=== PATIENT | female | born 1950 | race Caucasian/White ===

== ENCOUNTER → 2021-05-04 | Outpatient (CLI) | payer MEDICARE ==
[~2021-05-04] MED LIST: CYAN50004 PO; CYCL10TA2 PO; LEVO88TA56 PO; MILK140C PO; NAPR220T70 PO; RED600CA2 PO
[2021-05-04 11:13] LABS: BASO # 0.1 x10^3/uL (0.0-0.2); BASO % 1 % (0-3); EOS # 0.4 x10^3/uL (0.0-0.7); EOS % 8 % (0-3); HEMATOCRIT 37.7 % (36.0-47.0); HEMOGLOBIN 12.7 g/dL (12.0-15.5); LYMPH # 1.4 x10^3/uL (1.0-4.8); LYMPH % 24 % (24-48); MEAN CORPUSCULAR HEMOGLOBIN 31 pg (25-35); MEAN CORPUSCULAR HGB CONC 34 g/dL (31-37); MEAN CORPUSCULAR VOLUME 92 fL (79-100); MONO # 0.4 x10^3/uL (0.0-1.1); MONO % 6 % (0-9); NEUT # 3.5 x10^3/uL (1.8-7.7); NEUT % 61 % (31-73); PLATELET COUNT 231 x10^3/uL (140-400); RED BLOOD COUNT 4.12 x10^6/uL (3.50-5.40); RED CELL DISTRIBUTION WIDTH 15.5 % (11.5-14.5); WHITE BLOOD COUNT 5.8 x10^3/uL (4.0-11.0)
[2021-05-04 11:28] LABS: ALBUMIN 3.7 g/dL (3.4-5.0); ALBUMIN/GLOBULIN RATIO 1.1 (1.0-1.7); CALCIUM 9.7 mg/dL (8.5-10.1); CREATININE 0.7 mg/dL (0.6-1.0); GFR 82.5; POTASSIUM 3.8 mmol/L (3.5-5.1); TOTAL BILIRUBIN 0.4 mg/dL (0.2-1.0)
== END ==
LOC: SURGPAT 10:24
PROVIDERS: ATTEND Neurological Surgery
DX: Z01.812 Encounter for preprocedural laboratory examination (principal); Z20.822 Contact with and (suspected) exposure to COVID-19; M48.02 Spinal stenosis, cervical region; Z98.1 Arthrodesis status
CPT/HCPCS: 80053; 85025; 87641; U0003; U0005

== ENCOUNTER 2021-05-07 07:08 | Inpatient (IN) | payer MEDICARE ==
[2021-05-04 10:56] VITALS: BP 140/65
--- NOTE | 2021-05-06 12:56 | HP ---
ADMIT DATE: 05/07/2021 PREOP HISTORY AND PHYSICAL HISTORY OF PRESENT ILLNESS: The patient is a pleasant 70-year-old who is having difficulty with neck and shoulder pain, left greater than right. She also notices numb sensations in both of her hands. She says with standing and walking, her legs feel weak and in fact she has fallen twice. She says she drops things. The problem began about a year and a half ago, it has been slowly worsening, especially in the last 6 months. Her neck and shoulder pain can reach 8/10. She has difficulty sleeping. Reaching up above her head, it is associated with significant pain in her arms. Sitting or changing positions helps her. She has been taking Aleve and Flexeril. She has had previous cervical and lumbar surgery. She had an anterior cervical fusion at C5-C6 and C6-C7 and did very well from that. CURRENT MEDICATIONS: Aspirin, Flexeril, levothyroxine, milk thistle, red yeast rice. PAST MEDICAL HISTORY: Arthritis, COPD, thyroid disease. PAST SURGICAL HISTORY: Cervical fusion in 2006, lumbar surgery in 2007. FAMILY HISTORY: Cancer, heart disease, hypertension. SOCIAL HISTORY: Retired, , current smoker. Drinks alcohol, 2 alcoholic beverages per day. ALLERGIES: PENICILLIN, CODEINE. REVIEW OF SYSTEMS: A 12-point review of systems was performed and is noncontributory except that mentioned above. PHYSICAL EXAMINATION: GENERAL: Alert, pleasant, in no acute distress. HEENT: Head is normocephalic, atraumatic. NECK: [id number]-hw-[id number] tenderness with palpation of the posterior cervical region, well-healed incision. SKIN: Warm and dry. MUSCULOSKELETAL: Cervical paraspinal muscle bulk is normal, cervical range of motion is restricted, normal range of motion of the upper extremities bilaterally. EXTREMITIES: No clubbing, cyanosis or edema. NEUROLOGIC: Alert and oriented x 3. Strength is 5/5 in the upper and lower extremities bilaterally except for hand grasp, which was 4+/5 bilaterally. Sensory was intact to light touch in the upper and lower extremities except for decreased sensation involving the forearms and hands with light touch. Reflexes were present and symmetric in the upper and lower extremities bilaterally, unsteady gait. IMAGING: I reviewed cervical spine films. The C7 screw appears to have backed out slightly. The overall alignment of her cervical spine seems satisfactory. There is a small anterolisthesis of C7 on T1. There is cervical stenosis noted at C4-C5 above her previous fusions. ASSESSMENT AND PLAN: She has developed significant cervical stenosis at C4-C5 above her previous fusion. I feel this is responsible for her symptoms. I have recommended an anterior cervical diskectomy and fusion at C4-C5. We did speak about the rationale, technique, risks, and expected postoperative course. She understands and would like to go ahead. We will make the arrangements. HARMAN/JASMINA/[facility] [place]: HARMAN/jonatan TID: [id number]
[~2021-05-07] VITALS: Ht 162.6 cm; Wt 57.6 kg
[2021-05-07] VITALS (9 sets, daily range): BP systolic 97–116; BP diastolic 43–62
[~2021-05-07 07:08] MED LIST changes: +BUPIVACAINE-EPI 0.5%-1:200000 MPF 30 ML VIAL. ONE; +GELATIN SPONGE SIZE 100. ONE; +HYDROmorphone 2 MG/ML VIAL IVP PRN; +THROMBIN TOPICAL 20,000 UNIT SPRAY.SYRN KIT TP ONE; +VANCOMYCIN 1GM IVPB FOR OMNI 250 ML IV PRN; +fentaNYL PF VIAL 100 MCG/2 ML VIAL IVP PRN
[2021-05-07] MEDS ORDERED: ONDANSETRON PF 4 MG/2 ML VIAL. ONE (07:12)
[2021-05-07] MEDS ORDERED: DEXAMETHASONE SOD PHOS 4 MG/ML VIAL ONE (07:12)
[2021-05-07] MEDS ORDERED: LIDOCAINE 2% PF 5 ML VIAL. ONE (07:12)
[2021-05-07] MEDS ORDERED: PROPOFOL 10 MG/ML (20ML) VIAL. IV ONE (07:12)
[2021-05-07] MEDS ORDERED: PROPOFOL 50 ML IV ONE ×2 (07:13→09:44)
[2021-05-07] MEDS ORDERED: ROCURONIUM 50 MG/5 ML VIAL. ONE (07:13)
[2021-05-07] MEDS ORDERED: REMIFENTANIL 2 MG VIAL. IV ONE (07:14)
[2021-05-07] MEDS: IV RINGERS,LACTATED 1000ML 1,000 ML IV SCH ×2 (07:59→12:49)
[2021-05-07] MEDS ORDERED: PHENYLEPHRINE 10 MG/ML VIAL. ONE (08:18)
[2021-05-07] MEDS ORDERED: DESFLURANE > 120 MINUTES IH ONE (08:18)
[2021-05-07] MEDS ORDERED: GLYCOPYRROLATE 1 MG/5 ML VIAL. ONE (08:23)
[2021-05-07] MEDS ORDERED: SCOPOLAMINE 1.5MG PATCH. TD ONE (09:00)
[2021-05-07] MEDS ORDERED: DEXAMETHASONE SOD PHOS 20 MG/5 ML VIAL. ONE (09:16)
[2021-05-07] MEDS ORDERED: FAMOTIDINE 20 MG/2 ML VIAL ONE (09:16)
[2021-05-07] MEDS ORDERED: HYDROcodone/APAP 5/325MG 1 TAB TABLET PO PRN (11:30)
[2021-05-07] MEDS ORDERED: MAGNESIUM HYDROXIDE 2,400 MG/30 ML ORAL.SUSP. PO PRN (11:30)
[2021-05-07] MEDS ORDERED: 0.9 % SODIUM CHLORIDE 10 ML DISP.SYRIN. IV PRN (11:30)
[2021-05-07] MEDS ORDERED: diphenhydrAMINE HCL 25 MG CAPSULE PO PRN (11:30)
[2021-05-07] MEDS ORDERED: NALOXONE 0.4 MG/ML VIAL. IV PRN (11:30)
[2021-05-07] MEDS ORDERED: ACETAMINOPHEN 325 MG TABLET. PO PRN (11:30)
[2021-05-07] MEDS ORDERED: CALCIUM CARBONATE 500 MG TAB.CHEW PO PRN (11:30)
[2021-05-07] MEDS ORDERED: MAG HYDROX/ALUMINUM HYD/SIMETH 30 ML ORAL.SUSP PO PRN (11:30)
[2021-05-07] MEDS ORDERED: ONDANSETRON PF 4 MG/2 ML VIAL. IVP PRN (11:30)
[2021-05-07] MEDS ORDERED: fentaNYL PF VIAL 100 MCG/2 ML VIAL IVP PRN (11:30)
[2021-05-07] MEDS ORDERED: PROCHLORPERAZINE 10 MG/2 ML VIAL. ONE (11:55)
[2021-05-07] MEDS ORDERED: MORPHINE SULFATE 2 MG/ML INJ. ONE (11:55)
[2021-05-07] MEDS: MORPHINE SULFATE 2 MG/ML INJ. IVP PRN ×2 (12:08→12:29)
[2021-05-07] MEDS: PROCHLORPERAZINE 10 MG/2 ML VIAL. IVP PRN ×2 (12:08→12:29)
[2021-05-07] MEDS ORDERED: fentaNYL PF VIAL 100 MCG/2 ML VIAL ONE (12:35)
[2021-05-07] MEDS: fentaNYL PF VIAL 100 MCG/2 ML VIAL IVP PRN ×2 (12:50→13:05)
--- NOTE | 2021-05-07 13:20 | NUR ---
Arrived to unit by bed from PACU. Drowsy but awakens when spoken to. Anterior neck dressing is d/i with soft collar. No c/o numbness/pain or tingling upper extremities. O2 at 2l per n/c. IVF's intact and infusing. SERGIO's and SDC's on bilaterally. Side rails up x's 2 with call light in reach. Spouse, Serafin, at bedside. Cont. monitor.
--- NOTE | 2021-05-07 17:00 | NUR ---
Ambulated to bathroom with assist x's 1. Voided without difficulty. Up in chair for dinner. Spouse in room. Cont. monitor.
[2021-05-07] MEDS: HYDROcodone/APAP 5/325MG 1 TAB TABLET PO PRN ×2 (17:33→22:08)
[2021-05-07] MEDS: CYCLOBENZAPRINE 10 MG TABLET. PO PRN (17:33)
[2021-05-07] MEDS: POTASSIUM CL 20MEQ D5-0.45NACL 1,000 ML IV SCH (20:03)
[2021-05-07] MEDS: DOCUSATE SODIUM 100 MG CAPSULE. PO SCH (20:33)
[2021-05-07] MEDS ORDERED: VANCOMYCIN 1 GM in IV NORMAL SALINE 250ML 250 ML IV ONE (20:40)
[2021-05-08] MEDS: POTASSIUM CL 20MEQ D5-0.45NACL 1,000 ML IV SCH (00:50)
[2021-05-08 03:25] VITALS: BP 97/45
[2021-05-08 05:56] VITALS: BP 99/45
[2021-05-08] MEDS ORDERED: LEVOTHYROXINE 88 MCG TABLET PO SCH (06:00)
[2021-05-08 06:03] VITALS: BP 99/45
[2021-05-08] MEDS: CYCLOBENZAPRINE 10 MG TABLET. PO PRN (07:48)
[2021-05-08] MEDS: DOCUSATE SODIUM 100 MG CAPSULE. PO SCH (07:48)
[2021-05-08] MEDS: HYDROcodone/APAP 5/325MG 1 TAB TABLET PO PRN ×2 (07:49→11:27)
[2021-05-08] MEDS ORDERED: CYANOCOBALAMIN (VITAMIN B-12) 1,000 MCG TABLET. PO SCH (09:00)
[2021-05-08] MEDS ORDERED: HYDR-2761 PO (09:32)
[2021-05-08] MEDS ORDERED: DOCU-153 PO (09:32)
--- NOTE | 2021-05-08 09:34 | DISCH ---
DISCHARGE INSTRUCTIONS Activity After Discharge Activity Instructions for Disc: Activity as tolerated, Avoid exertion Bathing Instructions: Shower-keep dressing dry, No Tub Bath until see Lifting Instructions after Dis: No heavy lifting, No pulling or pushing, Do not lift >10 pounds Driving Instructions after Dis: No driving for 2 weeks Diet after Discharge Additional Diet Restrictions: resume home diet, soft foods Wound Incision Care Wound/Incision Care: Ice to area for comfort Other wound/incision instructi: may remove dressing in 48 hours if dry then may shower, no soaking Contacting the after DC Call your doctor for: Concerns you may have Follow-Up Follow up with: Dr. Parker's nurse in 2 weeks [phone] DOMENICA PARKER MD May 08, 2021 09:34
[2021-05-08 11:08] VITALS: BP 128/56
--- NOTE | 2021-05-08 11:31 | PDOC ---
PROGRESS NOTES Date of Service DATE: 05/08/21 TIME: 11:30 Subjective Subjective POD #1 S/P ACDF Ambulating in room pain improved Objective Objective Vital Signs Date Time Temp Pulse Resp B/P (MAP) Pulse Ox O2 Delivery O2 Flow Rate FiO2 05/08/21 11:27 96 Room Air 05/08/21 11:08 97.5 61 18 128/56 (80) 97.5 05/07/21 16:15 2.0 Intake and Output 05/08/21 07:00 Intake Total 2910 ml Output Total 1920 ml Balance 990 ml Intake Oral 1660 ml IV Total 1250 ml Output Urine Total 1900 ml Estimated Blood Loss 20 ml Physical Exam General: Alert, Oriented X3, Cooperative, No acute distress, Other (clear voice) MUSCULOSKELETAL: Other (DE PAZ) Neuro: Normal speech Plan Plan of Care DC home f/u 2 weeks Comment Review of Relevant I have reviewed the following items henrik (where applicable) has been applied. Medications Current Medications Vancomycin HCl 250 ml @ 250 mls/hr 1X PREOP PRN IV PRIOR TO PROCEDURE Last administered on 05/07/21at 08:40; Start 05/07/21 at 06:00; Stop 05/07/21 at 18:00; Status DC Fentanyl Citrate (Fentanyl 2ml Vial) 25 mcg PRN Q5MIN PRN IVP MILD PAIN 1-3; Start 05/07/21 at 06:00; Stop 05/08/21 at 05:59; Status DC Fentanyl Citrate (Fentanyl 2ml Vial) 50 mcg PRN Q5MIN PRN IVP MODERATE PAIN 4-6 Last administered on 05/07/21at 13:05; Start 05/07/21 at 06:00; Stop 05/08/21 at 05:59; Status DC Morphine Sulfate (Morphine Sulfate) 1 mg PRN Q10MIN PRN IVP SEVERE PAIN 7-10 Last administered on 05/07/21at 12:29; Start 05/07/21 at 06:00; Stop 05/08/21 at 05:59; Status DC Ringer's Solution 1,000 ml @ 30 mls/hr Q24H IV Last administered on 05/07/21at 12:49; Start 05/07/21 at 06:00; Stop 05/07/21 at 17:59; Status DC Hydromorphone HCl (Dilaudid) 0.5 mg PRN Q10MIN PRN IVP SEVERE PAIN 7-10, 2nd CHOICE; Start 05/07/21 at 06:00; Stop 05/08/21 at 05:59; Status DC Prochlorperazine Edisylate (Compazine) 5 mg PACU PRN PRN IVP NAUSEA, MRX1 Last administered on 05/07/21at 12:29; Start 05/07/21 at 06:00; Stop 05/08/21 at 05:59; Status DC Gelatin (Gelfoam Size 100) 1 each STK-MED ONCE .ROUTE Last administered on at 09:30; Start 05/07/21 at 06:42; Stop 05/07/21 at 06:42; Status DC Bupivacaine HCl/ Epinephrine Bitart (Sensorcain-Epi 0.5%-1:201835 Mpf) 30 ml STK-MED ONCE .ROUTE Last administered on 05/07/21at 09:30; Start 05/07/21 at 06:42; Stop 05/07/21 at 06:42; Status DC Thrombin 20,000 unit STK-MED ONCE TP Last administered on 05/07/21at 09:30; Start 05/07/21 at 06:42; Stop 05/07/21 at 06:42; Status DC Propofol (Diprivan) 200 mg STK-MED ONCE IV ; Start 05/07/21 at 07:12; Stop 05/07/21 at 07:12; Status DC Lidocaine HCl (Lidocaine Pf 2% Vial) 5 ml STK-MED ONCE .ROUTE ; Start 05/07/21 at 07:12; Stop 05/07/21 at 07:12; Status DC Dexamethasone Sodium Phosphate (Decadron) 4 mg STK-MED ONCE .ROUTE ; Start 05/07/21 at 07:12; Stop 05/07/21 at 07:12; Status DC Ondansetron HCl (Zofran) 4 mg STK-MED ONCE .ROUTE ; Start 05/07/21 at 07:12; Stop 05/07/21 at 07:12; Status DC Rocuronium Belk (Zemuron) 50 mg STK-MED ONCE .ROUTE ; Start 05/07/21 at 07:13; Stop 05/07/21 at 07:13; Status DC Propofol 50 ml @ As Directed STK-MED ONCE IV ; Start 05/07/21 at 07:13; Stop 05/07/21 at 07:14; Status DC Remifentanil HCl (Ultiva) 2 mg STK-MED ONCE IV ; Start 05/07/21 at 07:14; Stop 05/07/21 at 07:14; Status DC Scopolamine (Transderm-Scop) 1 patch 1X ONCE TD Last administered on 05/07/21at 07:58; Start 05/07/21 at 09:00; Stop 05/07/21 at 09:01; Status DC Phenylephrine HCl (Moses-Synephrine Inj) 10 mg STK-MED ONCE .ROUTE ; Start 05/07/21 at 08:18; Stop 05/07/21 at 08:19; Status DC Desflurane (Suprane) 90 ml STK-MED ONCE IH ; Start 05/07/21 at 08:18; Stop 05/07/21 at 08:19; Status DC Glycopyrrolate (Robinul) 1 mg STK-MED ONCE .ROUTE ; Start 05/07/21 at 08:23; Stop 05/07/21 at 08:23; Status DC Dexamethasone Sodium Phosphate (Decadron) 20 mg STK-MED ONCE .ROUTE ; Start 05/07/21 at 09:16; Stop 05/07/21 at 09:16; Status DC Famotidine (Pepcid Vial) 20 mg STK-MED ONCE .ROUTE ; Start 05/07/21 at 09:16; Stop 05/07/21 at 09:16; Status DC Propofol 50 ml @ As Directed STK-MED ONCE IV ; Start 05/07/21 at 09:44; Stop 05/07/21 at 09:45; Status DC Levothyroxine Sodium (Synthroid) 88 mcg DAILY06 PO Last administered on 05/08/21at 05:55; Start 05/08/21 at 06:00 Cyanocobalamin (Vitamin B-12) 5,000 mcg DAILY PO Last administered on 05/08/21at 07:48; Start 05/08/21 at 09:00 Fentanyl Citrate (Fentanyl 2ml Vial) 50 mcg PRN Q2HR PRN IVP PAIN; Start 05/07/21 at 11:30 Vancomycin HCl 1 gm/Sodium Chloride 250 ml @ 250 mls/hr 1X ONCE IV Last administered on 05/07/21at 20:34; Start 05/07/21 at 20:40; Stop 05/07/21 at 21:39; Status DC Acetaminophen (Tylenol) 650 mg PRN Q6HRS PRN PO MILD PAIN / TEMP > 100.3'F; Start 05/07/21 at 11:30 Al Hydroxide/Mg Hydroxide (Mylanta Plus Xs) 30 ml PRN Q3HRS PRN PO HEARTBURN / GAS; Start 05/07/21 at 11:30 Calcium Carbonate/ Glycine (Tums) 500 mg PRN Q3HRS PRN PO INDIGESTION; Start 05/07/21 at 11:30 Diphenhydramine HCl (Benadryl) 25 mg PRN Q6HRS PRN PO ITCHING; Start 05/07/21 at 11:30 Naloxone HCl (Narcan) 0.1 mg PRN Q2MIN PRN IV SEE COMMENTS; Start 05/07/21 at 11:30 Sodium Chloride (Normal Saline Flush) 3 ml QSHIFT PRN IV AFTER MEDS AND BLOOD DRAWS; Start 05/07/21 at 11:30 Potassium Chloride/Dextrose/ Sod Cl 1,000 ml @ 75 mls/hr [id number] IV ; Start 05/07/21 at 11:30 Acetaminophen/ Hydrocodone Bitart (Lortab 5/325) 1 tab PRN Q4HRS PRN PO MODERATE PAIN Last administered on 05/08/21at 11:27; Start 05/07/21 at 11:30 Acetaminophen/ Hydrocodone Bitart (Lortab 5/325) 2 tab PRN Q4HRS PRN PO SEVERE PAIN; Start 05/07/21 at 11:30 Docusate Sodium (Colace) 100 mg BID PO Last administered on 05/08/21at 07:48; Start 05/07/21 at 21:00 Magnesium Hydroxide (Milk Of Magnesia) 2,400 mg PRN Q12HR PRN PO CONSTIPATION; Start 05/07/21 at 11:30 Ondansetron HCl (Zofran) 4 mg PRN Q6HRS PRN IVP NAUESA, 1ST CHOICE; Start 05/07/21 at 11:30 Cyclobenzaprine HCl (Flexeril) 10 mg TID PRN PRN PO MUSCLE SPASMS Last administered on 05/08/21at 07:48; Start 05/07/21 at 11:30 Morphine Sulfate (Morphine Sulfate) 2 mg STK-MED ONCE .ROUTE ; Start 05/07/21 at 11:55; Stop 05/07/21 at 11:55; Status DC Prochlorperazine Edisylate (Compazine) 10 mg STK-MED ONCE .ROUTE ; Start 05/07/21 at 11:55; Stop 05/07/21 at 11:55; Status DC Fentanyl Citrate (Fentanyl 2ml Vial) 100 mcg STK-MED ONCE .ROUTE ; Start 05/07/21 at 12:35; Stop 05/07/21 at 12:35; Status DC Active Scripts Active Dok (Docusate Sodium) 100 Mg Capsule 100 Mg PO BID Hydrocodone-Apap 5-325 (Hydrocodone Bit/Acetaminophen) 1 Tab Tablet 1 Tab PO PRN Q4HRS PRN Reported Vitamin B-12 (Cyanocobalamin (Vitamin B-12)) 5,000 Mcg Tab.rapdis 5,000 Mcg PO DAILY Milk Thistle (Milk Thistle Seed Extract) 140 Mg Capsule 140 Mg PO DAILY Red Yeast Rice 600 Mg Capsule 600 Mg PO DAILY Cyclobenzaprine Hcl 10 Mg Tablet 10 Mg PO TID Euthyrox (Levothyroxine Sodium) 88 Mcg Tablet 88 Mcg PO DAILY Vitals/I & O Vital Sign - Last 24 Hours 05/07/21 05/07/21 05/07/21 05/07/21 11:48 12:03 12:08 12:18 Temp 96.8 96.8 Pulse 84 75 87 Resp 20 22 20 20 B/P (MAP) 112/44 122/45 121/47 Pulse Ox 96 95 91 89 O2 Delivery Room Air Room Air Room Air Room Air 05/07/21 05/07/21 05/07/21 05/07/21 12:29 12:33 12:48 12:50 Pulse 85 69 Resp 22 20 20 20 B/P (MAP) 118/48 120/46 Pulse Ox 92 95 99 95 O2 Delivery Room Air Nasal Cannula Nasal Cannula Room Air O2 Flow Rate 2 2 05/07/21 05/07/21 05/07/21 05/07/21 13:05 13:05 13:20 13:20 Pulse 76 Resp 20 20 B/P (MAP) 134/49 Pulse Ox 98 99 95 95 O2 Delivery Nasal Cannula Nasal Cannula Nasal Cannula Nasal Cannula O2 Flow Rate 2.0 2 2.0 2.0 05/07/21 05/07/21 05/07/21 05/07/21 13:30 13:30 13:45 14:00 Temp 97.7 97.7 Pulse 60 Resp 18 B/P (MAP) 105/43 (63) 97/54 (68) 109/56 (73) Pulse Ox 97 O2 Delivery Nasal Cannula Nasal Cannula Nasal Cannula Nasal Cannula O2 Flow Rate 2.0 2.0 05/07/21 05/07/21 05/07/21 05/07/21 14:15 14:45 15:15 16:15 Temp 98.0 97.6 97.5 98.0 97.6 97.5 Pulse 58 62 59 56 Resp 20 18 20 B/P (MAP) 99/60 (73) 104/57 (73) 110/62 (78) 99/56 (70) Pulse Ox 97 96 O2 Delivery Nasal Cannula Nasal Cannula Nasal Cannula Nasal Cannula O2 Flow Rate 2.0 2.0 05/07/21 05/07/21 05/07/21 05/07/21 17:33 18:23 20:03 22:08 Temp 97.3 97.3 Pulse 69 Resp 18 18 B/P (MAP) 116/52 (73) Pulse Ox 98 98 O2 Delivery Room Air Room Air Room Air Room Air 05/07/21 05/07/21 05/08/21 05/08/21 22:10 22:38 03:25 06:03 Temp 97.8 97.7 98.2 97.8 97.7 98.2 Pulse 60 62 71 Resp 18 16 18 B/P (MAP) 107/54 (71) 97/45 (62) 99/45 (63) Pulse Ox 95 95 97 O2 Delivery Room Air Room Air Room Air Room Air 05/08/21 05/08/21 05/08/21 05/08/21 07:45 07:49 08:19 11:08 Temp 97.5 97.5 Pulse 61 Resp 18 B/P (MAP) 128/56 (80) Pulse Ox 97 97 96 O2 Delivery Room Air Room Air Room Air Room Air 05/08/21 11:27 Pulse Ox 96 O2 Delivery Room Air Intake and Output 7/22/21 7/22/21 7/23/21 15:00 23:00 07:00 Intake Total 1250 ml 1660 ml Output Total 20 ml 1500 ml 400 ml Balance 1230 ml 160 ml -400 ml Justifications for Admission Other Justification OBDULIA LAGUNAS TECHNICAL FELLOW May 08, 2021 11:31
--- NOTE | 2021-05-08 11:58 | NUR ---
Patient was discharged home with her around 1150. IV discontinued without complications. Discharge education completed by this nurse, therapy, and MICHEAL Noyola prior to dismissal. Soft collar in place. Surgical dressing CDI. Pain medication sent to the patients pharmacy by the doctor. No concerns noted at discharge.
--- NOTE | 2021-05-08 15:36 | OP ---
DATE OF SURGERY: 05/07/2021 PREOPERATIVE DIAGNOSES: 1. Cervical spinal stenosis and cervical myelopathy from herniated disk, C4-C5. 2. A proud screw at C7 from a previously placed anterior cervical diskectomy and fusion plate. OPERATIONS PERFORMED: 1. Anterior cervical microdiskectomy at C4-C5; anterior cervical fusion, C4-C5 with interbody fusion cage packed with allograft bone; anterior cervical plate, C4-C5. 2. Removal of fixation screws, C7. The operation was done with EMG monitoring, SSEP monitoring, NIMS monitoring, motor evoked potentials, fluoroscopy, microscopy and the use of the microscope. OPERATIVE INDICATIONS: The patient is a very pleasant 71-year-old woman who is having difficulty with neck pain and pain and numbness in both of her arms and hands. She is also noticing unsteadiness. On imaging studies, there is a large disk herniation at C4-C5, which is above her previous anterior fusion extending from C5 through C7. Additionally, on the images, there is a proud screw in C7, which does not appear to have backed out far enough to abut the esophagus. DESCRIPTION OF PROCEDURE: Following general endotracheal anesthesia, the patient was positioned supine on the operating room table. The anterior cervical region was then prepped and draped in standard fashion. She was a careful intubation. She was kept in a neutral position. The monitoring was established. Fluoroscopy was brought in. The microscope was draped. Using fluoroscopic guidance, an incision was made from the midline around to the right side over the C4-C5 interspace. I dissected down through skin and subcutaneous tissue. I dissected down the medial aspect of the sternocleidomastoid and carotid artery sheath down the anterior cervical vertebral bodies. I placed self-retaining retractors and I placed a 14 mm pin in C4. I removed the screw from the superior aspect of the hardware at C5 and placed a pin in this and I distracted the disk space. The microscope was brought in during this time and I used a #11 blade through the microscope with microscopic technique to incise the anterior annulus. I performed diskectomy with pituitary rongeurs. I scraped cartilaginous endplate. I drilled the posterior spurring. I opened the annulus. There was a large herniated disk fragment and I gently began to tease back and removed multiple disk fragments. As I worked, the spinal cord, which was compressed moved anteriorly toward me and I felt that I had an excellent disk removal. I did open the foramina bilaterally. I placed a 7 mm interbody fusion cage, which was packed with allograft bone and I onlaid an anterior plate and used four 14 mm screws to secure this. I then carried my dissection down along the course of the previously placed plate and when reaching C7, the screw on the right side appeared somewhat proud and I removed this, obtained a fluoroscopic image and there was still the proud screw present, which was on the contralateral side. I dissected across the midline to the contralateral side and removed that screw and assured myself that there would be no difficulties. I irrigated copiously with antibiotic solution. Hemostasis was excellent as well as the visualization. Fluoroscopic images at this point looked excellent. I irrigated copiously with antibiotic solution and irrigated further. Then, I closed the wound in layers with absorbable suture and skin was closed with 4-0 subcuticular stitch. I felt the surgery went very well. ANA LUISA DR: Barby TID: [id number]
--- NOTE | 2021-05-11 18:33 | PATHOLOGY ---
[facility] Accession Number: [id number] . 01 Material submitted: . vertebral column - CERVICAL DISC . 01 Clinical history: . CERVICAL STENOSIS ACDF C4-5 . 02 Diagnosis: Segments of fibrocartilaginous tissue and bone, cervical disc: - Degenerative changes of fibrocartilaginous tissue. (JPM:deena; 05/11/2021) S 05/11/2021 0930 Local . 02 Comment: There is no evidence of an acute inflammatory process or malignancy. (JPM:deena; 05/11/2021) . 02 Electronically signed: . Tristan Huitron MD, Pathologist NPI- [id number] . 01 Gross description: . The specimen is received in formalin, labeled "Haritha Wren, cervical disc". Received are multiple segments of pale hay fibrous tissue admixed with possible gritty bone measuring 4.8 x 4.2 x 0.9 cm in aggregate dimensions. The specimen is submitted representatively in cassette A1, following light decalcification. (CAA; 05/08/2021) QA/QA 05/08/2021 1305 Local . 02 Pathologist provided ICD-10: M50.30 . 02 CPT . 691937, 194095 Specimen Comment: A courtesy copy of this report has been sent to [phone] Specimen Comment: Report sent to Performed at: 01 [facility] [address] [id number] MD Lj Wiggins MD Phone: [phone] Performed at: 02 [facility] [address] [place], [place] [id number] MD Tristan Huitron MD Phone: [phone]
== END 2021-05-08 11:50 | disposition home or self-care (01) | DRG 473 ==
LOC: OPSVCIP 07:08 → 4 SOUTHEST 13:20
PROVIDERS: ADMIT Neurological Surgery; ATTEND Neurological Surgery
PROC: 0RB30ZZ Excision of Cervical Vertebral Disc, Open Approach (ICD-10-PCS; 2021-05-07)
PROC: 0RP104Z Removal of Internal Fixation Device from Cervical Vertebral Joint, Open Approach (ICD-10-PCS; 2021-05-07)
PROC: 4A11X4G Monitoring of Peripheral Nervous Electrical Activity, Intraoperative, External Approach (ICD-10-PCS; 2021-05-07)
PROC: 0RG10AJ Fusion of Cervical Vertebral Joint with Interbody Fusion Device, Posterior Approach, Anterior Column, Open Approach (ICD-10-PCS; principal; 2021-05-07 08:30)
DX: M50.021 Cervical disc disorder at C4-C5 level with myelopathy (principal); F17.200 Nicotine dependence, unspecified, uncomplicated; J44.9 Chronic obstructive pulmonary disease, unspecified; M48.02 Spinal stenosis, cervical region; R29.6 Repeated falls; Z82.49 Family history of ischemic heart disease and other diseases of the circulatory system; Z98.1 Arthrodesis status; E07.9 Disorder of thyroid, unspecified; M19.90 Unspecified osteoarthritis, unspecified site; G47.9 Sleep disorder, unspecified; R20.0 Anesthesia of skin; Z88.0 Allergy status to penicillin; Z88.8 Allergy status to other drugs, medicaments and biological substances; Z79.899 Other long term (current) drug therapy; Z88.2 Allergy status to sulfonamides
CPT/HCPCS: 76000; 80053; 85025; 87641; A4222; A4364; A4452; A4930; A6254; A6258; C1713; C1821; J0780; J1100; J2270; J2370; J2405; J2704; J3010; J3370; J3490; J7050; J7120; U0003; U0005; G0378; J7030